=== PATIENT | female | born 1950 | race Caucasian/White ===

== ENCOUNTER → 2016-07-19 | Outpatient (CLI) | payer MEDICARE, OTHER | LOC: OPSV 10:00 | DX: D64.9 Anemia, unspecified (principal) | CPT/HCPCS: 36430; 82270; J7050; P9016 ==

== ENCOUNTER → 2016-08-08 | Outpatient (CLI) | payer MEDICARE, OTHER | LOC: OPSV 08:30 → MRI 11:00 | DX: C49.8 Malignant neoplasm of overlapping sites of connective and soft tissue (principal); D64.9 Anemia, unspecified; D50.9 Iron deficiency anemia, unspecified; D51.8 Other vitamin B12 deficiency anemias; R90.89 Other abnormal findings on diagnostic imaging of central nervous system; M50.21 Other cervical disc displacement, high cervical region; C79.49 Secondary malignant neoplasm of other parts of nervous system; E86.0 Dehydration | CPT/HCPCS: 72156; 72157; 96360; 96361; A9577; J7030 ==